=== PATIENT | male | born 1945 | race Caucasian/White ===

== ENCOUNTER 2018-05-23 11:52 | Inpatient (IN) ==
[2018-05-23] MEDS ORDERED: ceFAZolin Inj 1 GM Vial (Addvantage) IV.SIG ONE (13:34)
[2018-05-23] MEDS ORDERED: Sodium Chlor 0.9% Inj 100 ML ONE (13:34)
[2018-05-23] MEDS ORDERED: Chlorhexidine Gluconate 2% 1 Pack (2 Cloths) TOPICAL ONE (13:45)
[2018-05-23] MEDS ORDERED: Metoprolol Tartrate 25 MG Tablet PO ONE (13:45)
[2018-05-23] MEDS ORDERED: Sodium Chlor 0.9% Inj 500 ML IV.SIG ONE (14:00)
[2018-05-23] MEDS ORDERED: ceFAZolin Inj 1 GM in Sodium Chlor 0.9% Inj 100 ML IV.SIG ONE (14:00)
--- NOTE | 2018-05-23 14:14 | P.HPUP ---
The Pre-Admit History and Physical Examination regarding the above named patient was reviewed (including, but not limited to, vital signs, heart, lungs, co-morbid conditions), and upon re-examination it is noted that: the patient's condition has not significantly changed since the last examination.
[2018-05-23] MEDS ORDERED: Normosol-R pH 7.4 Inj 4,000 ML IV.CONT ONE (14:28)
[2018-05-23] MEDS ORDERED: Lidocaine PF 1% Inj 5 ML Syringe OTHER ONE (14:28)
[2018-05-23] MEDS ORDERED: Glycopyrrolate Inj 1 MG/5 ML Syringe IV.PUSH ONE (14:28)
[2018-05-23] MEDS ORDERED: Phenylephrine/NS 1000 MCG/10ML Syringe IV.PUSH ONE (14:28)
[2018-05-23] MEDS ORDERED: Ketorolac Inj 30 MG/ML (IVP) Vial IV.PUSH ONE (14:28)
--- NOTE | 2018-05-23 15:16 | P.OP ---
- Preoperative Diagnosis (1) Diverticulitis - Postoperative Diagnosis (1) Diverticulitis Date of procedure: 05/23/18 Procedure: Cystoscopy with bilateral ureteral catheter insertion Anesthesia: GETA Surgeon: Johann Winter DO Estimated blood loss (mL): 0 Pathology: none sent Operation and Findings: 33-year-old male with history of diverticular disease who was undergoing exploratory laparotomy by Dr. Singh and Dr. Quiroz. Requests were made for bilateral ureteral catheter insertion. The patient was brought to the operating room and placed in the dorsolithotomy position, he was prepped and draped in usual sterile fashion, received preprocedure antibiotics and general endotracheal tube anesthesia was administered. 20 Spanish cystoscope was inserted in the bladder ofss cystoscopy showed evidence of trabeculations and diverticula. The left ureteral orifice was identified a 5 Spanish Mckeon catheter was inserted into the left ureteral orifice. A 0.35 sensor wire was then passed through the 5 Spanish opening catheter and then the catheter slid up easily. This was then repeated on the right side without difficulty. The catheters were then attached to the 16 Spanish Mckeon catheter. The patient tolerated procedure well.
[2018-05-23] MEDS ORDERED: Ketorolac Inj 30 MG/ML (IVP) Vial IV.PUSH PRN (17:35)
[2018-05-23] MEDS ORDERED: Naloxone Inj 0.4 MG/ML Vial IV.PUSH PRN ×2 (17:35→17:40)
[2018-05-23] MEDS ORDERED: Potassium Chlor 20 mEq Premix 20 MEQ/100 ML PIGGYBACK IV.SIG PRN (17:35)
[2018-05-23] MEDS ORDERED: Potassium Chlor 40 mEq Premix 40 MEQ/100 ML PIGGYBACK IV.SIG PRN (17:35)
[2018-05-23] MEDS ORDERED: fentaNYL Citrate Inj 100 MCG/2 ML Ampul ONE (17:50)
[2018-05-23] MEDS ORDERED: Morphine Inj 4 MG/ML Vial ONE (17:51)
[2018-05-23] MEDS ORDERED: Morphine Inj 30 MG/30 ML PCA.VIAL PCA ONE (18:00)
[2018-05-23] MEDS ORDERED: *morphine SULFATE 4 MG/ML PERIprocedure ONLY ONE ×3 (18:02→18:31)
[2018-05-23] MEDS: KCL 20 mEq/D5W/NaCl 0.9% Inj 1,000 ML IV.CONT SCH (18:19)
[2018-05-23] MEDS: Morphine Inj 30 MG/30 ML PCA.VIAL PCA PRN (18:22)
[2018-05-23] MEDS ORDERED: *Meperidine Inj 25 MG/ML Vial PERIprocedural Use ONLY ONE (18:45)
[2018-05-23] MEDS: Dextrose 5%/NaCl 0.9% Inj 1,000 ML IV.CONT SCH ×2 (20:09→22:03)
[2018-05-23] MEDS ORDERED: Non-Formulary Drug (Enalapril Maleate [Enalapril Maleate] 20 MG) PO SCH (21:00)
[2018-05-23] MEDS: LORazepam 1 MG Tablet PO SCH (21:34)
[2018-05-23] MEDS: amLODIPine 5 MG Tablet PO SCH (21:35)
[2018-05-24] MEDS: KCL 20 mEq/D5W/NaCl 0.9% Inj 1,000 ML IV.CONT SCH ×3 (00:54→21:07)
[2018-05-24 05:29] LABS: Baso % (Auto) 0.1 % (0.0-2.0); Hematocrit 34.6 % (39.0-51.0); Hemoglobin 11.9 gm/dL (13.0-17.0); Lymph # (Auto) 0.3 th/mm3 (1.0-4.8); Lymph % (Auto) 1.5 % (9.0-44.0); Mean Corpuscular HGB Conc 34.3 % (32.0-36.0); Mean Corpuscular Hemoglobin 30.8 pg (27.0-34.0); Mean Corpuscular Volume 89.8 fL (80.0-100.0); Mean Platelet Volume 7.7 fL (7.0-11.0); Mono # (Auto) 0.4 th/mm3 (0.0-0.9); Mono % (Auto) 2.2 % (0.0-8.0); Neut # (Auto) 15.8 th/mm3 (1.8-7.7); Neut % (Auto) 96.2 % (16.0-70.0); Platelet Count 203 th/mm3 (150-450); Red Blood Count 3.86 mil/mm3 (4.50-5.90); Red Cell Distribution Width 14.6 % (11.6-17.2); White Blood Count 16.4 th/mm3 (4.0-11.0)
[2018-05-24 06:05] LABS: Calcium 7.2 mg/dL (8.5-10.1); Carbon Dioxide 25.6 meq/L (21.0-32.0); Potassium 4.7 meq/L (3.5-5.1)
[2018-05-24 06:18] LABS: Albumin 2.6 g/dL (3.4-5.0); Calcium-Albumin Corrected 8.3 mg/dL (8.5-10.1)
[2018-05-24] MEDS: Allopurinol 300 MG Tablet PO SCH (08:28)
[2018-05-24] MEDS: Pantoprazole Inj 40 MG Vial IV.PUSH SCH (08:29)
--- NOTE | 2018-05-24 09:09 | P.PNCS ---
Subjective Colorectal Surgery Post Op Day #: 1 Interval history: afebrile, VSS UO good KAMILAH little Objective Result Diagrams: 05/24/18 04:16 05/24/18 04:16 Objective Remarks: PE alert Abd - soft, wound dry, 1 stent DC'd Assessment and Plan - Plan Imp: stable post-op OOB decr IVF tx to floor
[2018-05-24] MEDS: Dextrose 5%/NaCl 0.9% Inj 1,000 ML IV.CONT SCH ×2 (09:30→14:30)
[2018-05-24] MEDS: Morphine Inj 30 MG/30 ML PCA.VIAL PCA PRN ×2 (11:32→23:51)
[2018-05-24] MEDS: amLODIPine 5 MG Tablet PO SCH (20:15)
--- NOTE | 2018-05-24 21:04 | MP ---
cc: Pj Singh MD, Andrew H MD DATE OF OPERATION: 05/23/2018 PREOPERATIVE DIAGNOSIS: History of diverticulitis, attention to colostomy. PROCEDURE: Exploratory laparotomy with lysis of adhesions, segmental colon resection, and low pelvic anastomosis, closure of colostomy. POSTOPERATIVE DIAGNOSES: 1. History of diverticulitis. 2. Meckel diverticulum. 3. Left hydroureter. 4. Severe calcification of major vascular arteries. SURGEON: Pj Singh MD [employer]PUTY [employer] SERVICES: Dr. Juan Ramon Aguilera PROCEDURE: The patient was placed in the operating room in the supine position. After adequate general anesthesia, his legs were placed in universal stirrups and supported appropriately. The abdomen and perineum were then prepped with Betadine solution and draped in the usual sterile fashion. With Dr. Aguilera's assistance, the previous midline incision was opened, extending it cephalad towards the xiphoid. Abdomen was entered under direct vision, taking down adhesions to the parietal peritoneum. There were fairly flimsy but significant adhesions throughout the entire abdominal cavity, and these were tediously dissected free, and the bowel mobilized up out of the pelvis. The lateral gutters were also freed from adhesions and small bowel mobilized up. After full mobilization, the liver and gallbladder appeared to be unremarkable. The stomach and duodenum were normal. The Irvin pouch was very indurated and thickened, contracted down in the pelvis. The great vessels were very calcified and tortuous, somewhat enlarged as well. First after all the small bowel was mobilized out of the pelvis, plane was developed along the presacral space mobilizing the remaining rectosigmoid off the presacral fascia, preserving the presacral nerves as much as possible. After mobilization posteriorly, the Irvin pouch was found to be twisted and stuck down upon itself, and this was untwisted and mobilized up. However, the proximal extent of the bowel was not really suitable for anastomosis due to contracted size. Therefore, cul-de-sac was opened, and the bowel mobilized further distally toward the pelvic floor. At a point in the proximal rectum, the mesorectum was divided using electrocautery, and the bowel finally divided using a Contour stapling device. The intervening mesenteric attachments taken between Kellys, obtaining hemostasis with Vicryl ties. The colostomy was taken down from its intraabdominal wall attachments and returned back into the abdomen. The left colon was mobilized off the retroperitoneum, splenic flexure taken down. The lesser sac entered, and the omentum taken off the transverse colon for full left mobilization. The pedicle for the left colic vessels was taken and divided obtaining hemostasis with Vicryl ties. After full mobilization, there was a sufficient length the bowel to reach the rectal pouch without tension and with good blood supply, dividing the marginal artery at the appropriate point and dividing the bowel between a pursestring suture device and a Glenny clamp. The end of the bowel was sized to accept an EEA stapling anvil, and this was secured with a pursestring suture. Dr. Aguilera then passed the EEA stapling instrument transanally up to the end of the rectal pouch, and the trocar was advanced. The stapler was then reassembled the stapler. The bowel aligned properly. The staple closed and fired. Upon withdrawal, two complete donuts of tissue were seen. Gentle insufflation confirmed an airtight anastomosis. Abdomen was irrigated copiously with normal saline. Adequate hemostasis achieved at all sites. The colostomy site was closed in 2 layers using #1 PDS sutures to reapproximate the respective fascial layers. A Johnny-Wilkes drain was placed into the presacral space and brought up through a stab wound in the right lower quadrant, secured to the skin with a nylon suture. The midline incision was then closed anatomically using a running #1 PDS suture to reapproximate the midline fascia. The subcutaneous tissue was irrigated copiously at all sites and the skin closed with a row of surgical georgette. Wound area washed with normal saline and dried, sterile dressing of Telfa and gauze applied. The patient tolerated the procedure quite well and was brought to the recovery room in stable condition. Sponge and needle counts were correct at the end of the procedure. MD JUAN JOSE Ruiz/arsalan , 08:16 PM , 08:28 PM
[2018-05-24] MEDS: LORazepam 1 MG Tablet PO SCH (22:44)
[2018-05-25] MEDS: KCL 20 mEq/D5W/NaCl 0.9% Inj 1,000 ML IV.CONT SCH ×2 (03:41→08:44)
[2018-05-25 07:04] LABS: Baso % (Auto) 0.2 % (0.0-2.0); Eos # (Auto) 0.1 th/mm3 (0.0-0.4); Eos % (Auto) 0.5 % (0.0-4.0); Hematocrit 36.9 % (39.0-51.0); Hemoglobin 12.4 gm/dL (13.0-17.0); Lymph # (Auto) 1.1 th/mm3 (1.0-4.8); Lymph % (Auto) 10.2 % (9.0-44.0); Mean Corpuscular HGB Conc 33.5 % (32.0-36.0); Mean Corpuscular Hemoglobin 30.4 pg (27.0-34.0); Mean Corpuscular Volume 90.6 fL (80.0-100.0); Mean Platelet Volume 8.1 fL (7.0-11.0); Mono # (Auto) 0.5 th/mm3 (0.0-0.9); Neut # (Auto) 9.2 th/mm3 (1.8-7.7); Neut % (Auto) 84.1 % (16.0-70.0); Platelet Count 229 th/mm3 (150-450); Red Blood Count 4.08 mil/mm3 (4.50-5.90); Red Cell Distribution Width 15.2 % (11.6-17.2); White Blood Count 10.9 th/mm3 (4.0-11.0)
[2018-05-25 07:24] LABS: Calcium 8.1 mg/dL (8.5-10.1); Carbon Dioxide 30.1 meq/L (21.0-32.0); Potassium 4.5 meq/L (3.5-5.1)
[2018-05-25] MEDS: Pantoprazole Inj 40 MG Vial IV.PUSH SCH (08:47)
[2018-05-25] MEDS: Allopurinol 300 MG Tablet PO SCH (15:43)
[2018-05-25] MEDS: Heparin - SQ 10,000 UNITS/ML Vial SQ SCH ×2 (15:45→20:00)
--- NOTE | 2018-05-25 16:43 | P.PNCS ---
Subjective Colorectal Surgery Post Op Day #: 2 Interval history: afebrile, VSS UO good berry liq Objective Result Diagrams: 05/25/18 05:55 05/25/18 05:55 Objective Remarks: PE alert Abd - soft, wound dry, stents out KAMILAH clear Assessment and Plan - Plan Imp: OOB decr IVF tx to floor start PO heparin
[2018-05-25 18:29] LABS: Prothrombin Time 10.2 sec (9.8-11.6)
[2018-05-25] MEDS: LORazepam 1 MG Tablet PO SCH (20:00)
[2018-05-25] MEDS: amLODIPine 5 MG Tablet PO SCH (20:00)
[2018-05-26] MEDS: KCL 20 mEq/D5W/NaCl 0.9% Inj 1,000 ML IV.CONT SCH ×3 (01:30→10:53)
[2018-05-26] MEDS: Pantoprazole Inj 40 MG Vial IV.PUSH SCH (09:43)
[2018-05-26] MEDS: Heparin - SQ 10,000 UNITS/ML Vial SQ SCH ×2 (09:43→20:31)
[2018-05-26] MEDS: Allopurinol 300 MG Tablet PO SCH (09:44)
--- NOTE | 2018-05-26 17:53 | P.PNCS ---
Subjective Colorectal Surgery Post Op Day #: 3 Interval history: afebrile, VSS UO good berry PO Objective Result Diagrams: 05/25/18 05:55 05/25/18 05:55 Objective Remarks: PE alert Abd - soft, wound dry, urine clear Assessment and Plan - Plan Imp: OOB decr IVF start PO, adv heparin, coumadin
[2018-05-26] MEDS: LORazepam 1 MG Tablet PO SCH (20:29)
[2018-05-26] MEDS: amLODIPine 5 MG Tablet PO SCH (20:30)
[2018-05-27] MEDS: KCL 20 mEq/D5W/NaCl 0.9% Inj 1,000 ML IV.CONT SCH (01:49)
[2018-05-27 04:48] VITALS: PULSE 82
[2018-05-27 08:13] VITALS: BP 164/67; RESP 17; TEMP 97.8; O2SAT 92
[2018-05-27] MEDS: Pantoprazole Inj 40 MG Vial IV.PUSH SCH (08:53)
[2018-05-27] MEDS: Heparin - SQ 10,000 UNITS/ML Vial SQ SCH (08:53)
[2018-05-27] MEDS: Allopurinol 300 MG Tablet PO SCH (08:53)
== END 2018-05-27 11:57 | disposition home or self-care (01) | DRG 330 ==
LOC: HSDI 11:52 → HCPC 20:55 → N03 05-24 15:02 → N07 05-26 18:07
PROVIDERS: ADMIT Colon & Rectal Surgery; ATTEND Colon & Rectal Surgery
CPT/HCPCS: 80048; 82040; 85025; 85610; 86850; 86900; 86901; 88304; 88305; 88307; 94150; 94640; 94664; 94665; C1769; C9113; J0131; J0690; J1100; J1644; J1885; J2175; J2250; J2270; J2370; J2405; J2704; J3010; J3480; J7042